=== PATIENT | male | born 1990 | race Caucasian/White ===

== ENCOUNTER 2025-01-19 20:57 | Observation (INO) | payer SELFPAY ==
[~2025-01-19] VITALS: Ht 185.4 cm; Wt 79.3 kg
[2025-01-19 21:38] LABS: BASOPHILS ABSOLUTE AUTO 0.16 K/mm3 (0.00-0.23); BASOPHILS PERCENT AUTO 1 % (0-2); EOSINOPHILS ABSOLUTE AUTO 0.01 K/mm3 (0.00-0.68); EOSINOPHILS PERCENT AUTO 0 % (0-6); Hemoglobin 19.7 g/dL (13.5-17.5); IMMATURE GRAN ABSOLUTE AUTO 0.23 K/mm3 (0.00-0.10); IMMATURE GRAN PERCENT AUTO 1 % (0-1); LYMPHOCYTES ABSOLUTE AUTO 2.59 K/mm3 (0.84-5.20); LYMPHOCYTES PERCENT AUTO 9 % (21-46); MONOCYTES ABSOLUTE AUTO 2.41 K/mm3 (0.16-1.47); MONOCYTES PERCENT AUTO 8 % (4-13); Mean Corpuscular HGB Conc 34.0 g/dL (31.5-36.5); Mean Corpuscular Volume 96 fL (80-100); NEUTROPHILS ABSOLUTE AUTO 23.38 K/mm3 (1.96-9.15); NEUTROPHILS PERCENT AUTO 81 % (41-73); NRBC ABSOLUTE 0.00 K/mm3 (0.00-0.02); NRBC Auto 0.0 /100 WBC (0.0-0.2); Platelet Count 377 K/mm3 (150-400); RDW Coefficient Variation 11.9 % (11.7-14.2); RDW Standard Deviation 42.5 fL (35.1-46.3)
[2025-01-19 21:39] LABS: Hematocrit 58.0 % (37.0-53.0)
[2025-01-19 21:55] LABS: pH Blood Venous 6.80 (7.34-7.37)
[2025-01-19] MEDS ORDERED: Insulin Human Regular 100 UNIT in NS 100 ML IV SCH (22:10)
[2025-01-19] MEDS ORDERED: NS 1,000 ML IV SCH ×2 (22:10→22:35)
[2025-01-19] MEDS ORDERED: Sodium Bicarb 8.4% Inj 150 MEQ in Dextrose 5% 1,000 ML IV SCH (22:20)
[2025-01-19 22:26] LABS: Calcium, Ionized (POC) 1.18 mmol/L (1.10-1.46); Chloride (POC) 107 mmol/L (98-108); Creatinine (POC) 1.3 mg/dL (0.8-1.3); Glucose (ISTAT POC) 474 mg/dL (70-99); Hematocrit (POC) 58.0 % (41.0-53.0); Hemoglobin (POC) 19.7 g/dL (13.5-17.5); Potassium (POC) 4.2 mmol/L (3.5-5.5); Sodium (POC) 137 mmol/L (135-148); Total CO2 (POC) 5 mmol/L (21-32)
[2025-01-19] MEDS ORDERED: NS 1,000 ML BAG IR SCH (22:35)
[2025-01-19 23:10] LABS: Alanine Aminotransfer (ALT/SGP 27.0 U/L (12-78); Albumin, Blood 4.2 g/dL (3.4-5.0); Albumin/Globulin Ratio 1.0 (0.8-1.8); Anion Gap 33.0 mmol/L (3-11); Aspartate Aminotrans (AST/SGOT 18.0 U/L (12-37); Bilirubin, Total 0.7 mg/dL (0.1-1.0); Blood Urea Nitrogen 14.0 mg/dL (8-24); CO2, Blood 4.0 mmol/L (21-32); Calcium, Blood 8.3 mg/dL (8.5-10.1); Chloride, Blood 101.0 mmol/L (98-108); Creatinine, Blood 1.26 mg/dL (0.60-1.20); Globulin, Blood 4.2 g/dL (2.2-4.0); Glucose, Blood 455.0 mg/dL (70-99); Potassium, Blood 4.1 mmol/L (3.5-5.5); Sodium, Blood 134.0 mmol/L (136-145); Total Protein, Blood 8.4 g/dL (6.4-8.2)
[2025-01-19 23:42] LABS: Source, Urine Voided
[2025-01-19 23:53] LABS: Bilirubin, Urine Neg (Neg); Glucose Qualitative, Urine 4+ (Neg); Ketones, Urine 4+ (Neg); Leukocyte Esterase, Urine Neg (Neg); Protein, Urine 2+ (Neg); Specific Gravity, Urine 1.025 (1.003-1.022); Urobilinogen, Urine NORM (Normal)
[2025-01-19] MEDS ORDERED: DiphenhydrAMINE HCl 50 MG/ML 1ML Vial IV ONE (23:55)
[2025-01-19] MEDS ORDERED: Midazolam HCl 1MG / ML 2ML Vial IV ONE (23:55)
[2025-01-20] VITALS (31 sets, daily range): BP systolic 110–162; BP diastolic 62–106
[2025-01-20] MEDS ORDERED: Sodium Bicarb 8.4% 1 MEQ/ML 50 ML Vial IV ONE ×2 (00:05→01:10)
[2025-01-20 00:15] LABS: Color, Urine Pale Yellow (P-Yellow)
[2025-01-20 00:17] LABS: Red Blood Cells, Urine 0-2 /hpf (0-2); White Blood Cells, Urine 0-2 /hpf (0-5)
[2025-01-20] MEDS ORDERED: Ondansetron HCl 2 MG / ML 2ML Vial IV PRN (00:35)
[2025-01-20] MEDS ORDERED: Sodium Bicarb 8.4% 1 MEQ/ML 50 ML Vial ONE (01:08)
--- NOTE | 2025-01-20 01:27 | NUR ---
CRITICAL VBG CALLED TO DR ROMANO. BICARB GTT STOPPED, CONT LR AT 250 ML/HR. REPEAT VBG WITH NEXT CHEM AT 0510
[2025-01-20] MEDS ORDERED: INSULIN LI100 UNIT/5 SC (01:35)
[2025-01-20] MEDS ORDERED: INSULANI (01:36)
[2025-01-20 01:43] LABS: Anion Gap 29.0 mmol/L (3-11); Blood Urea Nitrogen 15.0 mg/dL (8-24); CO2, Blood 5.0 mmol/L (21-32); Calcium, Blood 7.5 mg/dL (8.5-10.1); Chloride, Blood 109.0 mmol/L (98-108); Creatinine, Blood 1.17 mg/dL (0.60-1.20); Glucose, Blood 374.0 mg/dL (70-99); Potassium, Blood 4.1 mmol/L (3.5-5.5); Sodium, Blood 139.0 mmol/L (136-145)
[2025-01-20 05:11] LABS: pH Blood Venous 7.11 (7.34-7.37)
[2025-01-20] MEDS ORDERED: D5W-1/4NS 1,000 ML IV SCH (06:05)
[2025-01-20] MEDS ORDERED: D5W-1/2NS 1,000 ML IV SCH (06:10)
[2025-01-20 06:15] LABS: Anion Gap 22.0 mmol/L (3-11); Blood Urea Nitrogen 14.0 mg/dL (8-24); CO2, Blood 9.0 mmol/L (21-32); Calcium, Blood 7.2 mg/dL (8.5-10.1); Chloride, Blood 109.0 mmol/L (98-108); Creatinine, Blood 1.09 mg/dL (0.60-1.20); Glucose, Blood 219.0 mg/dL (70-99); Potassium, Blood 3.6 mmol/L (3.5-5.5); Sodium, Blood 136.0 mmol/L (136-145)
[2025-01-20] MEDS ORDERED: D5W-1/2NS KCl 20mEq 1,000 ML IV SCH (06:20)
--- NOTE | 2025-01-20 06:20 | NUR ---
SHIFT SUMMARY: PT ARRIVED FROM THE ED WITH INSULIN GTT AT 8.2 U/HR, SODIUM BICARB GTT, AND LR RUNNING. PATIENT WAS EXHIBITING KUSSMAUL RESPIRATIONS BUT WAS COMPLAINING THAT HE WAS FEELING LIKE HE WAS HAVING A HARD TIME BREATHING WELL. LUNGS WERE CLEAR, SPO2 WAS 100%. 1 AMP SODIUM BICARB ADMINISTERED AND PT BEGAN TO SHOW IMPROVEMENT. HIS BREATHING IMPROVED AND HE WAS ABLE TO SLEEP. LABS ARE TRENDING IN THE RIGHT DIRECTION. HR REMAINS TACHY, RHYTHM IS SINUS. BP IS STABLE. HIS HAS REMAINED AT BEDSIDE AND SAID THAT THIS STARTED A COUPLE OF DAYS AGO AND HE HASN'T BEEN EATING AND THEN VOMITED BLACK EMESIS BEFORE SHE BROUGHT HIM TO THIS HOSPITAL. NO C/O NAUSEA OR VOMITING SINCE PT HAS BEEN ON THE UNIT.
[2025-01-20] MEDS ORDERED: Enoxaparin 40 MG/0.4 ML SYR SC SCH (09:00)
--- NOTE | 2025-01-20 09:09 | NUR ---
PT IS AWAKE AND COMMUNICATING, BLOOD SUGAR HAS DROPPED TO NORMAL. LABS SENT PER ORDERS. AT BEDSIDE. INSULIN DRIP OFF FOR 30 MINUTES PER PROTOCOL. WILL RECHECK THEN. TAKING IN SOME ORANGE JUICE. HEART RATE REMAINS ELEV IN THE 120S.
[2025-01-20 09:40] LABS: Anion Gap 17.0 mmol/L (3-11); Blood Urea Nitrogen 12.0 mg/dL (8-24); CO2, Blood 12.0 mmol/L (21-32); Calcium, Blood 7.7 mg/dL (8.5-10.1); Chloride, Blood 111.0 mmol/L (98-108); Creatinine, Blood 0.96 mg/dL (0.60-1.20); Glucose, Blood 144.0 mg/dL (70-99); Potassium, Blood 3.6 mmol/L (3.5-5.5); Sodium, Blood 136.0 mmol/L (136-145)
[2025-01-20 09:46] LABS: Magnesium, Blood 1.8 mg/dL (1.6-2.4)
--- NOTE | 2025-01-20 09:50 | NUR ---
CALL TO , RESTART INSULIN GTT AT 3U/HR, FLUIDS UP TO 200ML/HR. RECHECK IN AN HOUR. PT CONTINUES TO STATE THAT HE IS FEELING BETTER.
[2025-01-20 10:02] LABS: Phosphorus, Blood 0.4 mg/dL (2.5-4.9)
[2025-01-20] MEDS ORDERED: Potassium Phosphate Dibasic 30 MM in Dextrose 5% 500 ML IV STA (10:07)
[2025-01-20] MEDS ORDERED: INSULANI SC (11:49)
--- NOTE | 2025-01-20 12:58 | NUR ---
ELIZABETH IS RECEIVING HIS D5 1/2 NS @ 200ML/HR AND THE K+PHOS IN DEXTROSE, HIS BLOOD SUGAR HAS CLIMBED UP TO MID 200S. TEMPERATURE COMING BACK DOWN, ENCOURAGING COUGH AND DEEP BREATHING WHEN AWAKE, PARENTS AT BEDSIDE. LAB DRAWN FOR UPDATE.
[2025-01-20 13:13] LABS: Influenza A/2009-H1 Not Detected (NOT DETECT); SARS-Cov-2 (COVID-19), BioFire Not Detected (NOT DETECT)
[2025-01-20 15:31] LABS: Anion Gap 16.0 mmol/L (3-11); Blood Urea Nitrogen 10.0 mg/dL (8-24); CO2, Blood 12.0 mmol/L (21-32); Calcium, Blood 7.4 mg/dL (8.5-10.1); Chloride, Blood 110.0 mmol/L (98-108); Creatinine, Blood 0.93 mg/dL (0.60-1.20); Glucose, Blood 240.0 mg/dL (70-99); Potassium, Blood 4.1 mmol/L (3.5-5.5); Sodium, Blood 134.0 mmol/L (136-145)
[2025-01-20] MEDS ORDERED: Potassium Phosphate Dibasic 30 MM in Dextrose 5% 500 ML IV SCH (16:00)
--- NOTE | 2025-01-20 18:44 | NUR ---
ANA HAS STABLIZED WITH HIS SUGARS, THE LAST 2 HAVE BEEN 227. FLUIDS REMAIN AT 200ML/HR AND K+PHOS BAG 2 IS DETENTION COMPLETE. AND PARENTS AT THE BEDSIDE. ENCOURAGED COUGH AND DEEP BREATHING, TEMP 99.5. DENIES ANY COMPLAINTS AT THIS TIME.
[2025-01-20 22:01] LABS: Anion Gap 8.0 mmol/L (3-11); Blood Urea Nitrogen 7.0 mg/dL (8-24); CO2, Blood 20.0 mmol/L (21-32); Calcium, Blood 7.6 mg/dL (8.5-10.1); Chloride, Blood 111.0 mmol/L (98-108); Creatinine, Blood 0.86 mg/dL (0.60-1.20); Glucose, Blood 206.0 mg/dL (70-99); Magnesium, Blood 1.7 mg/dL (1.6-2.4); Phosphorus, Blood 1.9 mg/dL (2.5-4.9); Potassium, Blood 3.9 mmol/L (3.5-5.5); Sodium, Blood 135.0 mmol/L (136-145)
[2025-01-20] MEDS ORDERED: Potassium Phosphate Dibasic 15 MM in Dextrose 5% 250 ML IV ONE (23:30)
[2025-01-21] VITALS (17 sets, daily range): BP systolic 114–145; BP diastolic 73–93
[2025-01-21 03:26] LABS: BASOPHILS ABSOLUTE AUTO 0.01 K/mm3 (0.00-0.23); BASOPHILS PERCENT AUTO 0 % (0-2); EOSINOPHILS ABSOLUTE AUTO 0.01 K/mm3 (0.00-0.68); EOSINOPHILS PERCENT AUTO 0 % (0-6); Hematocrit 41.6 % (37.0-53.0); Hemoglobin 15.0 g/dL (13.5-17.5); IMMATURE GRAN ABSOLUTE AUTO 0.03 K/mm3 (0.00-0.10); IMMATURE GRAN PERCENT AUTO 0 % (0-1); LYMPHOCYTES ABSOLUTE AUTO 1.48 K/mm3 (0.84-5.20); LYMPHOCYTES PERCENT AUTO 12 % (21-46); MONOCYTES ABSOLUTE AUTO 1.00 K/mm3 (0.16-1.47); MONOCYTES PERCENT AUTO 8 % (4-13); Mean Corpuscular HGB Conc 36.1 g/dL (31.5-36.5); NEUTROPHILS ABSOLUTE AUTO 9.81 K/mm3 (1.96-9.15); NEUTROPHILS PERCENT AUTO 80 % (41-73); NRBC ABSOLUTE 0.00 K/mm3 (0.00-0.02); NRBC Auto 0.0 /100 WBC (0.0-0.2); Platelet Count 191 K/mm3 (150-400); RDW Coefficient Variation 12.0 % (11.7-14.2); RDW Standard Deviation 37.7 fL (35.1-46.3)
[2025-01-21 03:29] LABS: Mean Corpuscular Volume 86 fL (80-100)
[2025-01-21 03:44] LABS: Anion Gap 11.0 mmol/L (3-11); Blood Urea Nitrogen 7.0 mg/dL (8-24); CO2, Blood 18.0 mmol/L (21-32); Calcium, Blood 7.7 mg/dL (8.5-10.1); Chloride, Blood 110.0 mmol/L (98-108); Creatinine, Blood 0.82 mg/dL (0.60-1.20); Glucose, Blood 207.0 mg/dL (70-99); Potassium, Blood 3.3 mmol/L (3.5-5.5); Sodium, Blood 136.0 mmol/L (136-145)
[2025-01-21 04:05] LABS: Phosphorus, Blood 1.4 mg/dL (2.5-4.9)
[2025-01-21] MEDS ORDERED: Potassium Phosphate Dibasic 30 MM in Dextrose 5% 500 ML IV ONE (04:15)
--- NOTE | 2025-01-21 05:53 | NUR ---
SHIFT SUMMARY: No significant changes overnight. Patient overall appearance has improved. He's more alert and regaining appetite and states that he's feeling better overall. He remains on insulin gtt, labs have not fully corrected enough for transition yet. HR remains in 110s, BP is stable, breathing is unlabored.
[2025-01-21 08:58] LABS: Alanine Aminotransfer (ALT/SGP 17.0 U/L (12-78); Albumin, Blood 2.7 g/dL (3.4-5.0); Albumin/Globulin Ratio 1.0 (0.8-1.8); Anion Gap 11.0 mmol/L (3-11); Aspartate Aminotrans (AST/SGOT 9.0 U/L (12-37); Bilirubin, Total 0.6 mg/dL (0.1-1.0); Blood Urea Nitrogen 5.0 mg/dL (8-24); CO2, Blood 19.0 mmol/L (21-32); Calcium, Blood 7.4 mg/dL (8.5-10.1); Chloride, Blood 108.0 mmol/L (98-108); Creatinine, Blood 0.79 mg/dL (0.60-1.20); Globulin, Blood 2.6 g/dL (2.2-4.0); Glucose, Blood 416.0 mg/dL (70-99); Potassium, Blood 5.2 mmol/L (3.5-5.5); Sodium, Blood 133.0 mmol/L (136-145); Total Protein, Blood 5.3 g/dL (6.4-8.2)
[2025-01-21] MEDS ORDERED: Insulin Glargine-Yfgn 100 Unit/mL 3 ML SYR SC SCH (09:00)
[2025-01-21] MEDS ORDERED: Insulin Human Lispro 100 Units/ML 3ML Syringe SC SCH (11:30)
[2025-01-21 12:19] LABS: Anion Gap 12.0 mmol/L (3-11); Blood Urea Nitrogen 5.0 mg/dL (8-24); CO2, Blood 19.0 mmol/L (21-32); Calcium, Blood 7.9 mg/dL (8.5-10.1); Chloride, Blood 107.0 mmol/L (98-108); Creatinine, Blood 0.74 mg/dL (0.60-1.20); Glucose, Blood 323.0 mg/dL (70-99); Phosphorus, Blood 1.7 mg/dL (2.5-4.9); Potassium, Blood 3.0 mmol/L (3.5-5.5); Sodium, Blood 135.0 mmol/L (136-145)
[2025-01-21] MEDS ORDERED: NS 1,000 ML IV SCH (13:00)
[2025-01-21 15:48] LABS: Anion Gap 8.0 mmol/L (3-11); Blood Urea Nitrogen 6.0 mg/dL (8-24); CO2, Blood 23.0 mmol/L (21-32); Calcium, Blood 8.2 mg/dL (8.5-10.1); Chloride, Blood 109.0 mmol/L (98-108); Creatinine, Blood 0.78 mg/dL (0.60-1.20); Glucose, Blood 200.0 mg/dL (70-99); Phosphorus, Blood 1.7 mg/dL (2.5-4.9); Potassium, Blood 3.2 mmol/L (3.5-5.5); Sodium, Blood 137.0 mmol/L (136-145)
[2025-01-21] MEDS ORDERED: K-Phos Origina500 MG PO (16:51)
--- NOTE | 2025-01-21 17:44 | NUR ---
DISCHARGE Patient AAOx4, SR, RA, and ambulatory. Discharge paperwork reviewed with patient; informed K-phos replacment sent to pharmacy and to follow up with PCP about getting their labs drawn to check levels. Accompanied by , informed RN they will be traveling home in [place]. Patient states they feel better and are ready to be back home. All leads, IVs, and medical devices were removed before patient left. All personal belongings were given back to the patient. Patient and were assisted to the exit door by RN.
[2025-01-22 10:34] LABS: pH Blood Venous 6.96 (7.34-7.37)
== END 2025-01-21 17:45 | disposition home or self-care (01) ==
LOC: ER 20:57 → ICUE 21:00 → ER 01-20 00:22 → ICUE 01-20 00:46
PROVIDERS: Family Medicine; Internal Medicine; Student in an Organized Health Care Education/Training Program; ADMIT Student in an Organized Health Care Education/Training Program
DX: E10.10 Type 1 diabetes mellitus with ketoacidosis without coma (principal); E83.39 Other disorders of phosphorus metabolism; E87.6 Hypokalemia; E86.0 Dehydration
CPT/HCPCS: 0202U; 36415; 71045; 80047; 80048; 80053; 81001; 82330; 82803; 82947; 83735; 84100; 85014; 85025; 93005; 93010; 96361; 96365; 96366; 96367; 96376; 99285-25; A9270; G0378; J1815; J7030; J7060; J7070; J7120